=== PATIENT | male | born 1975 | race Caucasian/White ===

== ENCOUNTER 2020-06-14 19:18 | Emergency (ER) | payer SELFPAY ==
[~2020-06-14] VITALS: Ht 180.3 cm; Wt 171.5 kg
[~2020-06-14 19:18] MED LIST: IBUPROFEN400 MG PO
[2020-06-14 19:54] LABS: BASOPHIL % 1.1 % (0.2-1.5); PLATELET COUNT 393 x10^3mcL (152-348)
[2020-06-14 19:57] LABS: RED CELL DISTRIBUTION WIDTH 14.7 % (12.1-16.2)
[2020-06-14 20:10] LABS: CALCIUM 8.9 mg/dL (8.5-10.1); CARBON DIOXIDE 26.4 mmol/L (21-32); CHLORIDE SERUM 104 mmol/L (98-107); CREATININE SERUM 1.2 mg/dL (0.7-1.3); GFR1 > 60 mL/min; GLUCOSE SERUM 163 mg/dL (74-106); POTASSIUM SERUM 3.9 mmol/L (3.5-5.1); SODIUM SERUM 141 mmol/L (136-145)
[2020-06-14 20:16] LABS: ALBUMIN 3.6 g/dL (3.4-5.0); ALKALINE PHOSPHATASE 52 U/L (46-116); ALT/SGPT 28 U/L (16-63); AST/SGOT 19 U/L (15-37); BILIRUBIN TOTAL 0.3 mg/dL (0.20-1.00); TOTAL PROTEIN, SERUM 7.5 g/dL (6.4-8.2)
[2020-06-15 00:02] VITALS: BP 138/82
== END 2020-06-15 00:02 | disposition home or self-care (01) ==
LOC: ED 19:18
DX: R10.9 Unspecified abdominal pain (principal); R11.10 Vomiting, unspecified
CPT/HCPCS: J1885; J2405